=== PATIENT | male | born 1990 | race Caucasian/White ===

== ENCOUNTER 2017-08-13 12:54 | Emergency (ER) | payer OTHER ==
[~2017-08-13] VITALS: Ht 175.3 cm; Wt 90.9 kg
[2017-08-13] MEDS ORDERED: KETOROLAC 60 MG/2 ML VIAL (J1885) IM ONE (15:00)
[2017-08-13] MEDS ORDERED: CYCLOBENZAPRINE 10 MG TAB PO ONE (15:00)
--- NOTE | 2017-08-13 15:35 | REP ---
Clinical: Trauma . Technique: AP, lateral, bilateral oblique, and coned-down views. Findings: Alignment and lordosis is maintained. The vertebral bodies including transverse process and spinous processes are intact and normal. There is no evidence for acute fracture / compression injury or subluxation. No evidence for spondylolysis or spondylolisthesis. No significant degenerative change is noted. Impression: Normal lumbosacral spine radiograph series. Signed by Samuel Chase MD 08/13/2017 03:27 P
[2017-08-13] MEDS ORDERED: IBUP-1022 PO (15:58)
[2017-08-13] MEDS ORDERED: CYCL10TA PO (15:58)
[2017-08-13] MEDS ORDERED: NAPR500T PO (16:02)
[2017-08-13 16:12] VITALS: BP 125/60
== END 2017-08-13 16:14 | disposition home or self-care (01) ==
LOC: M ED 12:54
DX: M54.5 Low back pain (principal)
CPT/HCPCS: 72110; 96372; 99283; J1885